=== PATIENT | female | born 2000 | race African-American/Black ===

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

== ENCOUNTER 2019-07-28 00:16 | Outpatient (CLI) | payer MEDICAID ==
[2019-07-28 00:55] LABS: APPEARANCE,URINE CLEAR; BILIRUBIN,URINE NEGATIVE (NEGATIVE); COLOR,URINE YELLOW; GLUCOSE, URINE 50 mg/dL (NEGATIVE); KETONES,URINE TRACE mg/dL (NEGATIVE); LEUKOCYTE ESTERASE,URINE TRACE (NEGATIVE); NITRITE,URINE NEGATIVE (NEGATIVE); PROTEIN,URINE 30 mg/dL (NEGATIVE); URINE SPECIFIC GRAVITY 1.023; UROBILINOGEN,URINE NEGATIVE mg/dL (<2.0)
[2019-07-28 01:09] LABS: URINE AMPHETAMINES SCREEN NEGATIVE; URINE BARBITURATES SCREEN NEGATIVE; URINE BENZODIAZEPINES SCREEN NEGATIVE; URINE COCAINE SCREEN NEGATIVE; URINE MARIJUANA (THC) SCREEN NEGATIVE; URINE METHADONE SCREEN NEGATIVE; URINE PHENCYCLIDINE SCREEN NEGATIVE
--- NOTE | 2019-07-28 02:01 | RADIOLOGY REPORT (SQ) ---
US PELVIS EXAM DATE: 07/28/2019 12:00 AM COMMERCIAL LINES MANAGER HISTORY: Pelvic pain. COMPARISON: None. TECHNIQUE: Grayscale, color Doppler, and spectral Doppler ultrasound images of the pelvis were obtained. FINDINGS: There is a single live fetus in vertex position with a heart rate of 155 bpm. The placenta is anterior. JAYLIN is 15.5 cm. The cervix is 3.5 cm in length and is closed. IMPRESSION: Closed cervix measuring 3.5 cm.
== END 2019-07-28 01:38 | disposition home or self-care (01) ==
LOC: LC 00:16
PROVIDERS: ATTEND Student in an Organized Health Care Education/Training Program
PROC: 4A1HXCZ Monitoring of Products of Conception, Cardiac Rate, External Approach (ICD-10-PCS; principal; 2019-07-28)
DX: O46.92 Antepartum hemorrhage, unspecified, second trimester (principal); O47.02 False labor before 37 completed weeks of gestation, second trimester; Z3A.24 24 weeks gestation of pregnancy
CPT/HCPCS: 76815; 80307; 81001; 87086

== ENCOUNTER 2019-11-11 00:25 | Inpatient (IN) | payer MEDICAID ==
[2019-11-11 01:05] LABS: APPEARANCE,URINE CLOUDY; BILIRUBIN,URINE NEGATIVE (NEGATIVE); COLOR,URINE YELLOW; GLUCOSE, URINE 50 mg/dL (NEGATIVE); KETONES,URINE NEGATIVE (NEGATIVE); LEUKOCYTE ESTERASE,URINE MODERATE (NEGATIVE); NITRITE,URINE NEGATIVE (NEGATIVE); PROTEIN,URINE NEGATIVE (NEGATIVE); URINE SPECIFIC GRAVITY 1.013
[2019-11-11] MEDS ORDERED: OXYTOCIN 10 UNIT/ML VIAL ONE ×2 (01:21→03:04)
[2019-11-11] MEDS ORDERED: MISOPROSTOL 0.2 MG TABLET ONE (01:21)
[2019-11-11] MEDS ORDERED: LIDOCAINE 1% INJ-PF (10 MG/ML) 30 ML SDV ONE (01:22)
[2019-11-11] MEDS ORDERED: OXYTOCIN/NORMAL SALINE 0 UNIT/0 ML RTUINJ ONE (01:22)
[2019-11-11 01:25] LABS: URINE AMPHETAMINES SCREEN NEGATIVE; URINE BARBITURATES SCREEN NEGATIVE; URINE BENZODIAZEPINES SCREEN NEGATIVE; URINE COCAINE SCREEN NEGATIVE; URINE MARIJUANA (THC) SCREEN NEGATIVE; URINE METHADONE SCREEN NEGATIVE; URINE PHENCYCLIDINE SCREEN NEGATIVE
[2019-11-11] MEDS ORDERED: RINGERS SOLUTION,LACTATED 1,000 ML IV PRN (01:27)
--- NOTE | 2019-11-11 01:54 | Admission Physical ---
Datetime Report Generated by CPN: 11/11/2019 01:54 CURRENT ADMISSION Chief Complaint: Uterine Contractions Indication for Induction: Not Applicable Admit Impression : Term, Intrauterine ; Active Labor Admit Plan: Admit to Unit ALLERGIES Medication Allergies: No Medication Allergies: No Known Allergies (11/11/2019) Latex: No Latex Allergies OBSTETRICAL HISTORY EDC: 11/14/2019 00:00 : 1 Para: 0 Gestational Diabetes: No Rh Sensitization: No Incompetent Cervix: No BARBARA: No Infertility: No ART Treatment: No Uterine Anomaly: No IUGR: No Hx Previous C/S: No Macrosomia: No Hx Loss/Stillborn: No PIH: No Hx : No Placenta Previa/Abruption: No Depression/PP Depression: Yes PTL/PROM: No Post Hemorrhage: No Current Procedures: Ultrasound; NST Obstetrical History Comments: G1- current SEE RECORDS Alcohol: No Marijuana : No Cocaine: No Other Illicit Drugs: No Cigarettes: Never Smoker. [id number] MEDICAL HISTORY Diabetes: No Blood Transfusion: No Pulmonary Disease (Asthma, TB): No Breast Disease: No Hypertension: No Tow Truck Operator Surgery: No Heart Disease: No Hosp/Surgery: No Autoimmune Disorder: No Anesthetic Complications: No Kidney Disease: No Abnormal Pap Smear: No Neuro/Epilepsy: No Psychiatric Disorders: No Other Medical Diseases: No Hepatitis/Liver Disease: No Significant Family History: No Varicosities/Phlebitis: No Trauma/Violence : No Thyroid Dysfunction: No Medical History Comments: anxiety INFECTIOUS HISTORY Gonorrhea: No Genital Herpes: No Chlamydia: Yes Tuberculosis: No Syphilis: No Hepatitis: No HIV/AIDS Exposure: No Rash or Viral Illness: No HPV: No Infectious History Comments: 2018 negative MARCE PHYSICAL EXAM General: Normal HEENT: Normal Neurologic: Normal Thyroid: Normal Heart: Normal Lungs: Normal Breast: Deferred Back: Normal Abdomen: Normal Genitourinary Exam: Normal Extremities: Normal DTRs: Normal Pelvic Type: Adequate Vital Signs: Reviewed VAGINAL EXAM Dilatation: 4 Effacement: 80 Station: -1 MEMBRANES Pooling: Negative Membranes: Intact FETUS A EGA: 39.4 Monitoring: External US FHR- Baseline: 140 Variability: Moderate 6-25bpm Decelerations: None FHR Category: Category I Presentation: Vertex Admit Comment: admit for labor PLANS FOR LABOR AND DELIVERY Labor and Delivery: None Pain Management: Medications Feeding Preference: Both Benefit of Breast Feed Discussed: Yes Circumcision: Yes INFORMED CONSENT Signature: with User ID: [email or web address]
[2019-11-11 02:00] LABS: ABSOLUTE LYMPHOCYTES (AUTO) 1.5 10^3/uL (0.5-4.7); ABSOLUTE MONOCYTES (AUTO) 0.8 10^3/uL (0.1-1.4); ABSOLUTE NEUT (AUTO) 6.3 10^3/uL (1.7-8.2); BASOPHILS % (AUTO) 0.2 % (0-2); EOSINOPHILS % (AUTO) 0.5 % (0-6); HEMATOCRIT 32.7 % (36.0-47.0); HEMOGLOBIN 11.1 g/dL (12.0-15.5); LYMPHOCYTES % (AUTO) 17.1 % (13-45); MEAN CORPUSCULAR HGB CONC 33.9 g/dL (32.0-36.0); MEAN CORPUSCULAR VOLUME 86 fl (80-97); MONOCYTES % (AUTO) 9.6 % (3-13); PLATELET COUNT 229 10^3/uL (150-450); RED BLOOD COUNT 3.82 10^6/uL (3.72-5.28); RED CELL DISTRIBUTION WIDTH 15.8 % (11.5-14.0); SEGMENTED NEUTROPHILS % (AUTO) 72.6 % (42-78); TOTAL CELLS COUNTED % (AUTO) 100 %; WHITE BLOOD COUNT 8.7 10^3/uL (4.0-10.5)
[2019-11-11] MEDS ORDERED: MAGNESIUM HYDROXIDE SUSP 30 ML UDCUP PO PRN (04:34)
[2019-11-11] MEDS ORDERED: ACETAMINOPHEN WITH CODEINE #3 TABLET PO PRN ×2 (04:34)
[2019-11-11] MEDS ORDERED: PROMETHAZINE HCL 25 MG SUPP.RECT PR PRN (04:34)
[2019-11-11] MEDS ORDERED: PROMETHAZINE HCL 25 MG TABLET PO PRN (04:34)
[2019-11-11] MEDS ORDERED: DIBUCAINE 1% OINTMENT 28 GM TP PRN (04:34)
[2019-11-11] MEDS ORDERED: DIPH/PERTUSS(ACELL)/TETANUS VAC/PF 0.5 ML SYR (>=10YO) IM PRN (04:34)
[2019-11-11] MEDS ORDERED: ACETAMINOPHEN 650 MG SUPP.RECT PR PRN (04:34)
[2019-11-11] MEDS ORDERED: ZOLPIDEM TARTRATE 5 MG TABLET PO PRN (04:34)
[2019-11-11] MEDS ORDERED: PSEUDOEPHEDRINE HCL 30 MG TABLET PO PRN (04:34)
[2019-11-11] MEDS ORDERED: BENZOCAINE/MENTHOL AEROSOL SPRAY 56 ML TOP PRN (04:34)
[2019-11-11] MEDS ORDERED: GLYCERIN/WITCH HAZEL LEAF 1 EACH MED..WIPE TP PRN (04:34)
[2019-11-11] MEDS ORDERED: MEASLES,MUMPS&RUBELLA VACC/PF 0.5 ML VIAL SUBCUT PRN (04:34)
[2019-11-11] MEDS ORDERED: DIPHENHYDRAMINE HCL 25 MG CAPSULE PO PRN (04:34)
[2019-11-11] MEDS ORDERED: OXYTOCIN/NORMAL SALINE 20 UNIT/1,000 ML RTUINJ IV PRN (04:34)
[2019-11-11] MEDS ORDERED: PROMETHAZINE HCL INJ 25 MG/1 ML VIAL IV PRN (04:34)
[2019-11-11] MEDS ORDERED: NA PHOS,M-B/NA PHOS,DI-BA (ADULT) 133 ML ENEMA PR PRN (04:34)
--- NOTE | 2019-11-11 05:13 | Delivery Summary ---
Del Sum A-C Datetime Report Generated by CPN: 11/11/2019 05:12 DELIVERY PERSONNEL DELIVERY PERSONNEL: [id number] Delivery Doctor:: Jennie Steel MD Labor and Delivery Nurse:: Meryl Trevizo RNwood fence installer Nurse:: Radha Quinones RN Weigher Alloy:: Bernadine Guan RN Account General Manager/NEPHROLOGIST: Jodi Dyson, ST MATERNAL INFORMATION Delivery Anesthesia: None Medications After Delivery: Pitocin 10 Units IM Estimated Blood Loss (ml): 250 Delivery QBL: 100 Maternal Complications: None LABOR SUMMARY EDC: 11/14/2019 00:00 No. Babies in Womb: 1 Attempted: No Labor Anesthesia: None LABOR INFORMATION Reason for Induction: Not Applicable Onset of Labor: 11/11/2019 01:52 Complete Dilatation: 11/11/2019 03:40 Oxytocin: N/A Group B Beta Strep: negative Antibiotics # of Doses: 0 Antibiotics Time of Last Dose: N/A Name of Antibiotic Given: N/A Steroids Given: None Reason Steroids Not Administered: Not Applicable MEMBRANES Membranes Rupture Method: Spontaneous Rupture of Membranes: 11/11/2019 00:15 Length of Rupture (hr): 3.83 Amniotic Fluid Color: Clear Amniotic Fluid Amount: Small Amniotic Fluid Odor: Normal STAGES OF LABOR Stage 1 hr: 1 Stage 1 min: 48 Stage 2 hr: 0 Stage 2 min: 25 Stage 3 hr: 0 Stage 3 min: 4 Total Time in Labor hr: 2 Total Time in Labor min: 17 VAGINAL DELIVERY Episiotomy: None Laceration #1: Vaginal Laceration Extension #1: N/A Laceration #2: None Laceration Extension #2: N/A Laceration #3: None Laceration Extension #3: N/A Laceration Repair: Yes Laceration Repair Note: repair of left labial laceration with interrupted 3-0 chromic sutures Sponge Count Correct: Yes; Vaginal Sweep Performed Sharps Count Correct: Yes CSECTION DELIVERY Primary Indication: N/A Secondary Indication: N/A CSection Incidence: N/A Labor: N/A Elective: N/A CSection Incision: N/A BABY A INFORMATION Delivery Date/Time: 11/11/2019 04:05 Method of Delivery: Vaginal Nurse Controlled Delivery: No Born in Route : No : N/A Forceps: N/A Vacuum Extraction: N/A Shoulder Dystocia : No PRESENTATION/POSITION BABY A Presentation: Cephalic Cephalic Presentation: Vertex Vertex Position: Left Occipital Anterior Breech Presentation: N/A PLACENTA INFORMATION BABY A Placenta Delivery Time : 11/11/2019 04:09 Placenta Method of Delivery: Spontaneous Placenta Status: Delivered SCORES BABY A Heart Rate 1 min: >100 bpm Resp Effort 1 min: Good Cry Reflex Irritability 1 min: Cough or Sneeze or Pulls Away Muscle Tone 1 min: Active Motion Color 1 min: Blue/Pale SCORE 1 MIN: 8 Heart Rate 5 min: >100 bpm Resp Effort 5 min: Good Cry Reflex Irritability 5 min: Cough or Sneeze or Pulls Away Muscle Tone 5 min: Active Motion Color 5 min: Body [place], Extremities Blue SCORE 5 MIN: 9 INFANT INFORMATION BABY A Gestational Age at Delivery: 39.4 Gestational Status: Full Term- 39- 40.6 Weeks Outcome : Liveborn Infant Condition : Stable Sex: Male IDENTIFICATION BABY A Infant Verification Date/Time: 11/11/2019 04:12 ID Band Number: [id number] Mother's Name Verified: Yes RN Verifying : E. Rulek RN/ S. Yvon RN WEIGHT/LENGTH BABY A Birthweight (gm): 3030 Infant Weight (lb): 6 Infant Weight (oz): 11 Length (in): 19.75 Infant Length (cm): 50.17 CORD INFORMATION BABY A No. Cord Vessels: 3 Nuchal Cord : N/A Cord Blood Taken: Yes-For Eval (Mom's Blood Type - or O+) Infant Suction: Mouth ASSESSMENT BABY A Complications: None Physical Findings at Delivery: Within Normal Limits Infant Respirations: Appears Normal Skin to Skin: Yes Software Quality Analyst/ALS Called : No Care By: Hannah Quinones, RN Transferred To: Remains with Mother BABY B INFORMATION : N/A SIGNATURES Signature: with User ID: [email or web address]
[2019-11-11] MEDS: IBUPROFEN 800 MG TABLET PO SCH ×3 (06:51→22:06)
[2019-11-11] MEDS: SENNOSIDES/DOCUSATE 8.6-50 MG 1 EACH TABLET PO SCH (09:25)
[2019-11-11] MEDS: DOCUSATE SODIUM 100 MG CAPSULE PO SCH ×2 (09:25→17:29)
[2019-11-11] MEDS: PRENATAL VITAMIN W DHA CAPSULE PO SCH (09:25)
[2019-11-11] MEDS: FERROUS SULFATE 325 MG TABLET PO SCH ×2 (09:25→17:29)
[2019-11-11] MEDS: FAMOTIDINE 20 MG TABLET PO SCH ×2 (09:25→22:07)
--- NOTE | 2019-11-11 10:24 | PDOC PROGRESS REPORT ---
Subjective-OB Progress Note for:: 11/11/19 Subjective: 19yo G1 now P1 s/p delivery day. Pt ambulating and voiding without difficulty. Reports pain well controlled with medications. No concerns at this time Physical Exam (OB) Vital Signs: Temp Pulse Resp BP Pulse Ox 99.7 F 87 16 145/58 H 100 11/11/19 07:24 11/11/19 07:24 11/11/19 07:24 11/11/19 07:24 11/11/19 07:24 Intake & Output 11/10/19 11/11/19 11/12/19 06:59 06:59 06:59 Output Total 100 Balance -100 Weight 88 kg - General General Appearance: Appears well In distress: None - PIH/Pre-Eclampsia Headache: Absent Epigastric Pain: No Visual Changes: No - Episiotomy/Laceration Site Condition: Well Approximated - Lochia Lochia Amount: Small 10-25 ml Lochia Color: Rubra/Red - Abdomen Description: Soft, Round Fundal Description: Firm, Midline Fundal Height: u/u - u/2 - Respiratory Respiratory Status: No respiratory distress - Extremities Upper extremity: Normal inspection Lower extremities: Normal inspection - Neurological Cognition: Normal Orientation: AAOx4 - Psychological Associated symptoms: Normal affect, Normal mood Objective-Diagnostic Laboratory: 11/11/19 01:48 11/11/19 11/11/19 11/11/19 00:40 01:48 01:48 WBC 8.7 RBC 3.82 Hgb 11.1 L Hct 32.7 L MCV 86 MCH 29.0 MCHC 33.9 RDW 15.8 H Plt Count 229 Seg Neutrophils % 72.6 Urine Color YELLOW Urine Appearance CLOUDY Urine pH 7.0 Ur Specific [place] 1.013 Urine Protein NEGATIVE Urine Glucose (UA) 50 H Urine Ketones NEGATIVE Urine Blood NEGATIVE Urine Nitrite NEGATIVE Ur Leukocyte Esterase MODERATE H Blood Type A NEGATIVE Antibody Screen NEGATIVE Assessment and Plan(PN) - Assessment and Plan (1) Vaginal delivery Is this a current diagnosis for this admission?: Yes Plan: Routine pp care (2) Obstetric labial laceration, delivered, current hospitalization Is this a current diagnosis for this admission?: Yes Plan: continue to monitor for s/s of infection - Time Spent with Patient Time with patient: Less than 15 minutes Medications reviewed and adjusted accordingly: Yes - Disposition Anticipated Discharge: Home Within: within 24 hours
[2019-11-12] MEDS: IBUPROFEN 800 MG TABLET PO SCH ×3 (05:45→21:38)
[2019-11-12 06:57] LABS: HEMATOCRIT 28.2 % (36.0-47.0); HEMOGLOBIN 9.7 g/dL (12.0-15.5); MEAN CORPUSCULAR HEMOGLOBIN 29.7 pg (27.0-33.4); MEAN CORPUSCULAR HGB CONC 34.5 g/dL (32.0-36.0); MEAN CORPUSCULAR VOLUME 86 fl (80-97); PLATELET COUNT 166 10^3/uL (150-450); RED BLOOD COUNT 3.28 10^6/uL (3.72-5.28); RED CELL DISTRIBUTION WIDTH 15.8 % (11.5-14.0); WHITE BLOOD COUNT 9.9 10^3/uL (4.0-10.5)
[2019-11-12] MEDS: FERROUS SULFATE 325 MG TABLET PO SCH ×2 (09:18→17:16)
[2019-11-12] MEDS: PRENATAL VITAMIN W DHA CAPSULE PO SCH (09:18)
[2019-11-12] MEDS: DOCUSATE SODIUM 100 MG CAPSULE PO SCH ×2 (09:18→17:16)
[2019-11-12] MEDS: SENNOSIDES/DOCUSATE 8.6-50 MG 1 EACH TABLET PO SCH (09:19)
[2019-11-12] MEDS: FAMOTIDINE 20 MG TABLET PO SCH ×2 (09:19→21:39)
--- NOTE | 2019-11-12 09:55 | PDOC PROGRESS REPORT ---
Subjective-OB Progress Note for:: 11/12/19 Subjective: Pt doing well, no complaints. She reports light bleeding, reg diet and voiding without difficulty. Physical Exam (OB) Vital Signs: Temp Pulse Resp BP Pulse Ox 97.3 F 82 16 120/70 99 11/12/19 07:26 11/12/19 07:26 11/12/19 07:26 11/12/19 07:26 11/12/19 07:26 Intake & Output 11/11/19 11/12/19 11/13/19 06:59 06:59 06:59 Intake Total 880 Output Total 100 Balance -100 880 Weight 88 kg - PIH/Pre-Eclampsia DTR's: 1 + Clonus: Negative Headache: Absent Epigastric Pain: No Visual Changes: No - Lochia Lochia Amount: Scant < 10 ml Lochia Color: Rubra/Red - Abdomen Description: Soft, Round Hernia Present: No Fundal Description: Firm, Midline Fundal Height: u/u - u/2 Objective-Diagnostic Laboratory: 11/12/19 06:37 11/12/19 06:37 WBC 9.9 RBC 3.28 L Hgb 9.7 L Hct 28.2 L MCV 86 MCH 29.7 MCHC 34.5 RDW 15.8 H Plt Count 166 Assessment and Plan(PN) - Assessment and Plan (1) Obstetric labial laceration, delivered, current hospitalization Is this a current diagnosis for this admission?: Yes (2) Vaginal delivery Is this a current diagnosis for this admission?: Yes - Time Spent with Patient Time with patient: Less than 15 minutes Medications reviewed and adjusted accordingly: Yes - Disposition Anticipated Discharge: Home Within: within 24 hours
[2019-11-13] MEDS: IBUPROFEN 800 MG TABLET PO SCH (07:03)
[2019-11-13 08:23] VITALS: BP 121/74
[2019-11-13] MEDS: FAMOTIDINE 20 MG TABLET PO SCH (09:12)
[2019-11-13] MEDS: DOCUSATE SODIUM 100 MG CAPSULE PO SCH (09:12)
[2019-11-13] MEDS: FERROUS SULFATE 325 MG TABLET PO SCH (09:12)
[2019-11-13] MEDS: PRENATAL VITAMIN W DHA CAPSULE PO SCH (09:12)
[2019-11-13] MEDS: SENNOSIDES/DOCUSATE 8.6-50 MG 1 EACH TABLET PO SCH (09:12)
--- NOTE | 2019-11-13 09:51 | PDOC DISCHARGE SUMMARY ---
Impression - Admit/DC Date/PCP Admission Date/Primary Care Provider: 11/11/19 01:13 MAGDALENA SARAH MD Discharge Date: 11/13/19 - Discharge Diagnosis (1) Obstetric labial laceration, delivered, current hospitalization Is this a current diagnosis for this admission?: Yes (2) Vaginal delivery Is this a current diagnosis for this admission?: Yes - Additional Information Discharge Diet: Regular Discharge Activity: Balance Activity w/Rest, Pelvic Rest Referrals: MAGDALENA SARAH MD [Primary Care Provider] - Prescriptions: Ibuprofen [Motrin 800 mg Tablet] 800 mg PO Q8HP PRN #60 tablet PRN Reason: Home Medications: No122/Iron/Folic Acid [ Multi Tablet] 1 each PO DAILY 07/28/19 Ibuprofen [Motrin 800 mg Tablet] 800 mg PO Q8HP PRN #60 tablet 11/13/19 Results Laboratory Results: WBC 9.9 10^3/uL (4.0-10.5) 11/12/19 06:37 RBC 3.28 10^6/uL (3.72-5.28) L 11/12/19 06:37 Hgb 9.7 g/dL (12.0-15.5) L 11/12/19 06:37 Hct 28.2 % (36.0-47.0) L 11/12/19 06:37 MCV 86 fl (80-97) 11/12/19 06:37 MCH 29.7 pg (27.0-33.4) 11/12/19 06:37 MCHC 34.5 g/dL (32.0-36.0) 11/12/19 06:37 RDW 15.8 % (11.5-14.0) H 11/12/19 06:37 Plt Count 166 10^3/uL (150-450) 11/12/19 06:37 Lymph % (Auto) 17.1 % (13-45) 11/11/19 01:48 [place] % (Auto) 9.6 % (3-13) 11/11/19 01:48 Eos % (Auto) 0.5 % (0-6) 11/11/19 01:48 Baso % (Auto) 0.2 % (0-2) 11/11/19 01:48 Absolute Neuts (auto) 6.3 10^3/uL (1.7-8.2) 11/11/19 01:48 Absolute Lymphs (auto) 1.5 10^3/uL (0.5-4.7) 11/11/19 01:48 Absolute Monos (auto) 0.8 10^3/uL (0.1-1.4) 11/11/19 01:48 Absolute Eos (auto) 0.0 10^3/uL (0.0-0.6) 11/11/19 01:48 Absolute Basos (auto) 0.0 10^3/uL (0.0-0.2) 11/11/19 01:48 Seg Neutrophils % 72.6 % (42-78) 11/11/19 01:48 Urine Color YELLOW 11/11/19 00:40 Urine Appearance CLOUDY 11/11/19 00:40 Urine pH 7.0 (5.0-9.0) 11/11/19 00:40 Ur Specific [place] 1.013 11/11/19 00:40 Urine Protein NEGATIVE mg/dL (NEGATIVE) 11/11/19 00:40 Urine Glucose (UA) 50 mg/dL (NEGATIVE) H 11/11/19 00:40 Urine Ketones NEGATIVE mg/dL (NEGATIVE) 11/11/19 00:40 Urine Blood NEGATIVE (NEGATIVE) 11/11/19 00:40 Urine Nitrite NEGATIVE (NEGATIVE) 11/11/19 00:40 Urine Bilirubin NEGATIVE (NEGATIVE) 11/11/19 00:40 Urine Urobilinogen 2.0 mg/dL (<2.0) H 11/11/19 00:40 Ur Leukocyte Esterase MODERATE (NEGATIVE) H 11/11/19 00:40 Urine Ascorbic Acid NEGATIVE (NEGATIVE) 11/11/19 00:40 Membranes Rupture POSITIVE (NEGATIVE) H 11/11/19 00:40 Urine Opiates Screen NEGATIVE 11/11/19 00:40 Urine Methadone Screen NEGATIVE 11/11/19 00:40 Ur Barbiturates Screen NEGATIVE 11/11/19 00:40 Ur Phencyclidine Scrn NEGATIVE 11/11/19 00:40 Ur Amphetamines Screen NEGATIVE 11/11/19 00:40 U Benzodiazepines Scrn NEGATIVE 11/11/19 00:40 Urine Cocaine Screen NEGATIVE 11/11/19 00:40 U Marijuana (THC) Screen NEGATIVE 11/11/19 00:40 RPR NONREACTIVE (NONREACTIVE) 11/11/19 01:48 Blood Type A NEGATIVE 11/11/19 01:48 Antibody Screen NEGATIVE 11/11/19 01:48 Plan Plan of Treatment: follow up in 4 weeks at [facility] for post check
== END 2019-11-13 12:20 | disposition home or self-care (01) | DRG 807 ==
LOC: LC 00:25 → LR 01:13 → 2S 06:15
PROVIDERS: ADMIT Obstetrics & Gynecology; ATTEND Obstetrics & Gynecology
PROC: 10E0XZZ Delivery of Products of Conception, External Approach (ICD-10-PCS; principal; 2019-11-11)
PROC: 0HQ9XZZ Repair Perineum Skin, External Approach (ICD-10-PCS; 2019-11-11)
PROC: 3E0234Z Introduction of Serum, Toxoid and Vaccine into Muscle, Percutaneous Approach (ICD-10-PCS; 2019-11-13)
DX: O26.893 Other specified pregnancy related conditions, third trimester (principal); Z37.0 Single live birth; O70.0 First degree perineal laceration during delivery; Z3A.39 39 weeks gestation of pregnancy; Z67.11 Type A blood, Rh negative; Z23 Encounter for immunization
CPT/HCPCS: 36415; 80307; 81005; 84112; 85025; 85027; 86592; 86850; 86900; 86901; 90715; 94760; J2590; J3490

== ENCOUNTER 2020-01-04 10:33 | Emergency (ER) | payer MEDICAID ==
[2020-01-04 10:45] VITALS: BP 114/76
--- NOTE | 2020-01-04 10:48 | ER Document Report ---
HPI - HPI Time Seen by Provider: 01/04/20 10:38 Pain Level: 4 Notes: Otherwise healthy 19-year-old female presenting with chief complaint of dental pain. Patient reports pain to the right lower gumline. Pain has been present for the last few days. Patient denies any fever or drainage from the area. Denies any difficulty swallowing or consuming foods. - REPRODUCTIVE Reproductive: DENIES: : Past Medical History - General Information source: Patient - Social History Smoking Status: Never Smoker Chew tobacco use (# tins/day): No Frequency of alcohol use: Occasional Drug Abuse: None Family History: Reviewed & Not Pertinent Patient has homicidal ideation: No - Medical History Medical History: Negative Renal/ Medical History: Denies: Hx Peritoneal Dialysis Surgical Hx: Negative Vertical Provider Document - CONSTITUTIONAL Notes: PHYSICAL EXAMINATION: GENERAL: Well-appearing, well-nourished and in no acute distress. HEAD: Atraumatic, normocephalic. EYES: Pupils equal round extraocular movements intact, conjunctiva are normal. ENT: Nares patent, tooth #32 erupting. Mild surrounding erythema, no bandar abscess, no trismus. NECK: Normal range of motion LUNGS: No respiratory distress Musculoskeletal: Normal range of motion NEUROLOGICAL: Normal speech, normal gait. PSYCH: Normal mood, normal affect. SKIN: Warm, Dry, normal turgor, no rashes or lesions noted. - INFECTION CONTROL TRAVEL OUTSIDE OF THE [place] IN LAST 30 DAYS: No Course - Re-evaluation Re-evalutation: It is likely that patient's wisdom tooth is coming in. This is causing pain in the local area. Patient will follow-up with a dentist. There is some surrounding erythema so we will start patient on a short course of antibiotics. Patient verbalizes understanding and agreement with this plan. - Vital Signs Vital signs: Temp Pulse Resp BP Pulse Ox 98.4 F 77 16 114/76 99 01/04/20 10:45 01/04/20 10:45 01/04/20 10:45 01/04/20 10:45 01/04/20 10:45 Discharge - Discharge Clinical Impression: Pain, dental Condition: Stable Disposition: HOME, SELF-CARE Additional Instructions: You have been seen for dental pain. It is very important that you follow-up with a dentist for definitive care. Please return if you develop fever greater than 101, swelling in your face, vomiting, difficulty breathing or swallowing, or any other symptoms that are concerning to you. For pain you should take ibuprofen 800 mg every 8 hours as needed. Prescriptions: Ibuprofen [Motrin 800 mg Tablet] 800 mg PO Q8H PRN #30 tab PRN Reason: Penicillin V Potassium [Penicillin Vk 500 mg Tablet] 500 mg PO BID #20 tablet
== END 2020-01-04 10:54 | disposition home or self-care (01) ==
LOC: ER 10:33
DX: K00.6 Disturbances in tooth eruption (principal); K08.89 Other specified disorders of teeth and supporting structures
CPT/HCPCS: 99282

== ENCOUNTER 2020-04-29 01:20 | Emergency (ER) | payer MEDICAID ==
[2020-04-29 01:50] VITALS: BP 136/65
[2020-04-29] MEDS ORDERED: IBUPROFEN 600 MG TABLET PO ONE (02:25)
[2020-04-29] MEDS ORDERED: TETRACAINE HCL 0.5% OPH SOLN 4 ML OD ONE (02:57)
--- NOTE | 2020-04-29 02:57 | ER Document Report ---
ED Eye Complaint - General Chief Complaint: Eye Injury Stated Complaint: EYE PAIN Time Seen by Provider: 04/29/20 02:51 TRAVEL OUTSIDE OF THE [place] IN LAST 30 DAYS: No - HPI Notes: 19-year-old female presents with right eye pain. Patient states that her 5-month-old son accidentally hit her in the eye this evening. Shortly after, her eye felt irritated and she felt as if something was in her eye. She has been rubbing her eye due to pain. She has noted a lot of tearing from the eye. He does not wear contact lenses. She denies visual changes. - Related Data Allergies/Adverse Reactions: No Known Allergies Allergy (Verified 01/04/20 10:41) Past Medical History - General Information source: Patient - Social History Smoking Status: Never Smoker Family History: Reviewed & Not Pertinent Renal/ Medical History: Denies: Hx Peritoneal Dialysis Review of Systems - Review of Systems Constitutional: No symptoms reported EENT: Eye pain. denies: Blurred vision Cardiovascular: No symptoms reported Respiratory: No symptoms reported Gastrointestinal: No symptoms reported Genitourinary: No symptoms reported Musculoskeletal: No symptoms reported Skin: No symptoms reported Neurological/Psychological: No symptoms reported Physical Exam - Vital signs Vitals: Temp Pulse Resp BP Pulse Ox 97.6 F 80 20 136/65 H 100 04/29/20 01:48 04/29/20 01:48 04/29/20 01:48 04/29/20 01:48 04/29/20 01:48 - General General appearance: Appears well In distress: None - HEENT Head: Normocephalic, Atraumatic Eyes: Other - Right eye with some conjunctival irritation. Tetracaine was applied which relieved patient's pain. Her eye was stained with fluorescein, she has a semilunar corneal abrasion to the inferior medial cornea, does not cross to pupillary boundary Extraocular movements intact: Yes Pupils: PERRL - Respiratory Respiratory status: No respiratory distress - Cardiovascular Rhythm: Regular - Abdominal Inspection: No: Obese - Neurological Neuro grossly intact: Yes Cognition: Normal Orientation: AAOx4 - Psychological Associated symptoms: Normal affect - Skin Skin Temperature: Warm Course - Re-evaluation Re-evalutation: 19-year-old female who was accidentally scratched by her son to the right eye. Vision is intact. Pupil is equal round and reactive. On fluorescein stain, she does have a corneal abrasion. She was prescribed Polytrim. Return precautions given, stable at time of discharge. - Vital Signs Vital signs: Temp Pulse Resp BP Pulse Ox 97.6 F 82 20 136/65 H 100 04/29/20 01:48 04/29/20 03:54 04/29/20 03:54 04/29/20 01:48 04/29/20 03:54 Discharge - Discharge Clinical Impression: Corneal abrasion Qualifiers: Encounter type: initial encounter Laterality: right Qualified Code(s): S05.01XA - Injury of conjunctiva and corneal abrasion without foreign body, right eye, initial encounter Disposition: HOME, SELF-CARE Instructions: Corneal Abrasion ([facility]) Additional Instructions: Use antibiotic eyedrops as directed. You may continue Motrin/ibuprofen for pain. Please return to the emergency department for any concerning or worsening symptoms. Prescriptions: Polymyxin B Sulf/Trimethoprim [Polytrim Eye Drops] 1 drop OD Q4H 5 Days #10 ml
== END 2020-04-29 03:55 | disposition home or self-care (01) ==
LOC: ER 01:20
DX: S05.01XA Injury of conjunctiva and corneal abrasion without foreign body, right eye, initial encounter (principal); H57.11 Ocular pain, right eye; X58.XXXA Exposure to other specified factors, initial encounter
CPT/HCPCS: 99283; J3490 ×2

== ENCOUNTER → 2020-08-25 | Outpatient (CLI) | payer MEDICAID ==
[2020-08-25 12:17] VITALS: BP 128/60
--- NOTE | 2020-08-25 12:17 | ER RDC ASSESSMENT REPORT ---
Intake - In the Last 14 days Have you traveled outside [place]?: No Have you been in close contact with someone CONFIRMED: No Worked in Healthcare?: No - Symptoms Subjective Fever(Brashe[place] feverish): No Chills: No Muscule Aches: No Runny Nose: No Sore Throat: No Cough (New or worsening chronic cough): No Shortness of breath: No Nausea or Vomiting: No Headache: No Abdominal Pain: No Diarrhea(3 or more loose stools in last 24 hours): No - Do you have any of the following Chronic lung disease: Asthma or emphysema or COPD: No Cystic Fibrosis: No Diabetes: No High Blood Pressure: No Cardiovascular Disease: No Chronic Kidney Disease: No Chronic Liver Disease: No Chronic blood disorder like Sickle Cell Disease: No Weak immune system due to disease or medication: No Neurologic condition that limits movement: No Developmental delay - Moderate to Severe: No Recent (within past 2 weeks) or current : No Morbid Obesity (>100 pounds over ideal weight): No - Objective Temperature: 98.6 F Pulse Rate: 75 Respiratory Rate: 16 Blood Pressure: 128/60 O2 Sat by Pulse Oximetry: 96 Objective: Given above, testing performed: covid Disposition: Home; Selfcare General - General Stated Complaint: loss of smell Time Seen by Provider: 08/25/20 11:50 Mode of Arrival: Ambulatory Information source: Patient - HPI Notes: 19-year-old female presents to [facility] clinic for COVID-19 testing. Patient denies any known exposure to Covid positive individuals. Symptom onset 08/19/2020. Patient is only reporting a mild headache that has now resolved and diminished sense of smell. Denies any fever or chills, runny nose or sore throat, cough or shortness of breath, GI upset. - Related Data Allergies/Adverse Reactions: No Known Allergies Allergy (Verified 01/04/20 10:41) Past Medical History - General Information source: Patient - Social History Smoking Status: Never Smoker Family History: Reviewed & Not Pertinent - Past Medical History Cardiac Medical History: Reports: None Pulmonary Medical History: Reports: None EENT Medical History: Reports: None Neurological Medical History: Reports: None Endocrine Medical History: Reports: None Renal/ Medical History: Reports: None. Denies: Hx Peritoneal Dialysis Malignancy Medical History: Reports: None GI Medical History: Reports: None Musculoskeletal Medical History: Reports None Skin Medical History: Reports None Psychiatric Medical History: Reports: Hx Anxiety Traumatic Medical History: Reports: None Infectious Medical History: Reports: None Past Surgical History: Reports: None Physical Exam - General General appearance: Appears well, Alert In distress: None Notes: PHYSICAL EXAMINATION: GENERAL: Well-appearing and in no acute distress. HEAD: Atraumatic, normocephalic. EYES: sclera anicteric, conjunctiva are normal. ENT: nares patent. Moist mucous membranes. NECK: Normal range of motion, supple without lymphadenopathy. LUNGS: No increased work of breathing. Lung sounds CTAB and equal. No wheezes rales or rhonchi. HEART: Regular rate and rhythm without murmurs. ABDOMEN: Soft, nontender, normal bowel sounds, no guarding. EXTREMITIES: Normal range of motion, no pitting edema. No cyanosis. NEUROLOGICAL: A&O x 3. Normal speech. PSYCH: Normal mood, normal affect. SKIN: Warm, Dry, normal turgor, no rashes or lesions noted Patient Education/Counseling Counseling/Education: Patient presents with symptoms associated with possible Covid 19 infection. Patient does not have emergency worrying symptoms such as difficulty breathing, shortness of breath, chest pain, pressure, confusion or cyanosis. Patient appears suitable for discharge as vital signs are stable and patient is nontoxic in appearance. Good return precautions have been discussed with patient, patient verbalized understanding and is agreeable with discharge plan of care at this time. Guidance for worsening S/SX: As a person under investigation for Covid 19, the [place] department of Health and Human Services, division of public health advises you to adhere to the following guidance until your test results are reported to you. If your test result is positive, you will receive additional information from your provider and your local health department at that time. Remain at home until you are cleared by the health provider or public health authorities. Keep a log of visitors to your home, notify any visitors to your home of your isolation status. If you plan to move to a new address or leave the county, notify the local health department in your County. Call your doctor or seek care if you have an urgent medical need. Before seeking medical care, call ahead to get instructions from the provider before arriving at the medical office clinic or hospital. Notify them that you are being tested for the virus that causes Covid 19 so that arrangements can be made, as necessary, to prevent transmission to others in the healthcare setting. Next, notify the local health department in your county. If a medical emergency arises and you need to call 911, inform the first responders that you are being tested for the virus that causes Covid 19. Next, notify the local health department in your county. RDC Discharge - Discharge Clinical Impression: Encounter for screening laboratory testing for COVID-19 virus Condition: Good Disposition: Home; Selfcare
[2020-08-25 12:49] LABS: A TYPE INFLUENZA AG NEGATIVE (NEGATIVE); B INFLUENZA AG NEGATIVE (NEGATIVE)
== END ==
LOC: RDC 10:54
PROVIDERS: ATTEND Registered Nurse
DX: Z20.822 Contact with and (suspected) exposure to COVID-19 (principal); R43.8 Other disturbances of smell and taste
CPT/HCPCS: 87635; 87804; 99202; 99211; C9803